=== PATIENT | male | born 1980 | race Caucasian/White ===

== ENCOUNTER 2024-02-15 23:09 | Emergency (ER) | payer OTHER ==
[~2024-02-15] VITALS: Ht 180.3 cm; Wt 91.6 kg
[2024-02-15 23:10] VITALS: BP 125/84; TEMP 97.5; O2SAT 99
[2024-02-16] MEDS ORDERED: CYCL5TAB PO (01:28)
[2024-02-16] MEDS: CYCLOBENZAPRINE 5MG TABLET PO ONE (01:32)
== END 2024-02-16 01:41 | disposition home or self-care (01) ==
LOC: M ED 23:09
DX: M62.830 Muscle spasm of back (principal); Z79.899 Other long term (current) drug therapy

== ENCOUNTER 2025-05-30 16:28 | Emergency (ER) | payer OTHER ==
[~2025-05-30] VITALS: Ht 180.3 cm; Wt 90.2 kg
[~2025-05-30 16:28] MED LIST: CYCL5TAB4 PO
[2025-05-30 16:31] VITALS: TEMP 97.5
[2025-05-30] MEDS: ONDANSETRON 4MG 2ML VIAL IV ONE (18:11)
[2025-05-30 18:27] LABS: BASO # 0.0 10^3/uL (0.0-0.2); BASO % 0.6 % (0.0-1.0); EOS # 0.2 10^3/uL (0.0-0.5); EOS % 3.2 % (0.0-3.0); LYMPH # 1.4 10^3/uL (1.5-5.0); LYMPH % 28.0 % (24.0-44.0); MONO # 0.4 10^3/uL (0.0-0.8); MONO % 8.0 % (2.0-8.0); NEUTROPHILS # 3.0 10^3/uL (1.5-8.5); NEUTROPHILS % 60.0 % (36.0-66.0); PLATELET COUNT, AUTOMATED 246 10^3/uL (150-450)
[2025-05-30 18:37] LABS: SOFIA COVID ANTIGEN NEGATIVE (NEGATIVE)
[2025-05-30 18:55] LABS: CALCIUM LEVEL 9.2 MG/DL (8.5-10.1); CARBON DIOXIDE LEVEL 30.0 MMOL/L (20-31); CHLORIDE LEVEL 104.0 MMOL/L (98-107); CREATININE FOR GFR 1.12 MG/DL (0.70-1.30); GLOMERULAR FILTRATION RATE 84.1 (>60); IRON (FE) 71.0 UG/DL (65-175); POTASSIUM SERUM 3.9 MMOL/L (3.5-5.1); SODIUM LEVEL 139.0 MMOL/L (136-145)
[2025-05-30 19:30] VITALS: BP 115/71; O2SAT 97
== END 2025-05-30 20:12 | disposition home or self-care (01) ==
LOC: M ED 16:28
DX: R11.0 Nausea (principal); R51.9 Headache, unspecified; Z79.899 Other long term (current) drug therapy
CPT/HCPCS: 80048; 82375; 83540; 85025; 87428; 96374; 99284; J2405

== ENCOUNTER 2025-07-26 21:09 | Emergency (ER) | payer OTHER ==
[~2025-07-26] VITALS: Ht 180.3 cm; Wt 91.5 kg
[2025-07-27 00:26] VITALS: BP 114/81; TEMP 98.3; O2SAT 98
[2025-07-27 01:01] LABS: APPEARANCE, URINE HAZY (CLEAR); BACTERIA, URINE AUTO NEGATIVE (NEGATIVE); BILIRUBIN, URINE AUTO NEGATIVE (NEGATIVE); BLOOD, URINE BLOOD NEGATIVE (NEGATIVE); GLUCOSE, URINE (UA) AUTO NEGATIVE (NEGATIVE); KETONE, URINE AUTO NEGATIVE (NEGATIVE); LEUKOCYTE ESTERASE, URINE AUTO NEGATIVE (NEGATIVE); NITRITE, URINE AUTO NEGATIVE (NEGATIVE); PROTEIN, URINE AUTO NEGATIVE (NEGATIVE); RBC, URINE AUTO 0 /HPF (0-3); SPECIFIC GRAVITY URINE AUTO 1.020 (1.002-1.035); SQUAMOUS EPITHELIAL CELL UR AU 0 /HPF (0-6); UROBILINOGEN, URINE AUTO 0.2 mg/dL (0.0-2.0); WBC, URINE AUTO 0 /HPF (0-3)
== END 2025-07-27 04:12 | disposition home or self-care (01) ==
LOC: M ED 21:09
DX: N50.811 Right testicular pain (principal); N50.812 Left testicular pain; Z79.899 Other long term (current) drug therapy